=== PATIENT | female | born 1990 ===

== ENCOUNTER 2022-12-24 13:21 | Outpatient (CLI) | payer OTHER | END 2022-12-24 14:29 | disposition home or self-care (01) | LOC: PRENATAL 13:21 | PROVIDERS: ATTEND Obstetrics & Gynecology Maternal & Fetal Medicine | DX: O36.80X0 Pregnancy with inconclusive fetal viability, not applicable or unspecified (principal); Z3A.13 13 weeks gestation of pregnancy ==

== ENCOUNTER 2023-02-06 12:52 | Outpatient (CLI) | payer OTHER | END 2023-02-06 14:31 | disposition home or self-care (01) | LOC: PRENATAL 12:52 | PROVIDERS: ATTEND Obstetrics & Gynecology Maternal & Fetal Medicine | DX: O35.9XX0 Maternal care for (suspected) fetal abnormality and damage, unspecified, not applicable or unspecified (principal); O35.3XX0 Maternal care for (suspected) damage to fetus from viral disease in mother, not applicable or unspecified; O34.219 Maternal care for unspecified type scar from previous cesarean delivery; Z3A.20 20 weeks gestation of pregnancy ==